=== PATIENT | female | born 1935 | race Caucasian/White ===

== ENCOUNTER → 2018-10-24 | Outpatient (CLI) | payer OTHER ==
[~2018-10-24] MED LIST: ANTIVERT12.5 MG PO; ARTIFICIAL TEA1 EACH OPHTHALMIC; ASPIR 8181 MG PO; ASPIRIN81 M2 PO; AZO CRANBERRY1 EAC1 PO; BYSTOLIC 5 MG5 M1 PO; CATAPRES0.1 MG PO; DIAZEPAM 5 MG5 M1 PO; IMDUR30 MG PO; ISOSORBIDE DINI30 MG PO; LIVALO2 MG PO; MULTI VITAMIN1 EACH PO; OMEGA-3 FISH1000 M1 PO; OMEPRAZOLE20 M2 PO; OMEPRAZOLE40 MG PO; PROBIOTIC1 EAC1 PO; QUINU10 PD; SUPER CAL-MAG1 EACH PO; SYSTANE BALANCE10 ML OPHTHALMIC; TRAMADOL 50 MG50 MG PO; VASCEPA1 GM PO; VITAMIN B PO; VITAMIN B-125000 MC1 PO; VITAMIN D PO; VITAMIN D2000 UNIT PO; ZOFRAN4 MG PO
[2018-10-24 15:38] LABS: HEMATOCRIT 39.7 % (37.0-47.0); HEMOGLOBIN 13.1 gm/dL (12.0-15.0); MCH 28.7 pg (26.0-34.0); MCHC 33.1 g/dL (28.0-37.0); MCV 86.8 fL (80.0-100.0); RBC 4.57 mil/uL (4.20-5.00); RDW 13.7 % (10.5-14.5); WBC 7.8 thou/uL (4.0-11.0)
[2018-10-24 16:00] LABS: CALCIUM 9.6 mg/dL (8.5-10.1); CREATININE 0.7 mg/dL (0.6-1.0); POTASSIUM 4.2 mmol/L (3.5-5.1); TOTAL BILIRUBIN 0.4 mg/dL (<0.1-1.0); TOTAL PROTEIN 7.3 g/dL (6.4-8.2)
== END ==
LOC: LAB 15:08
PROVIDERS: Nurse Practitioner
DX: K44.9 Diaphragmatic hernia without obstruction or gangrene (principal); K40.90 Unilateral inguinal hernia, without obstruction or gangrene, not specified as recurrent; K76.0 Fatty (change of) liver, not elsewhere classified; R91.1 Solitary pulmonary nodule; M47.814 Spondylosis without myelopathy or radiculopathy, thoracic region; M47.816 Spondylosis without myelopathy or radiculopathy, lumbar region; K86.2 Cyst of pancreas; N28.1 Cyst of kidney, acquired; K57.30 Diverticulosis of large intestine without perforation or abscess without bleeding; I70.0 Atherosclerosis of aorta; Z95.818 Presence of other cardiac implants and grafts; Z90.710 Acquired absence of both cervix and uterus; Z90.49 Acquired absence of other specified parts of digestive tract

== ENCOUNTER 2018-10-29 10:24 | Emergency (ER) | payer OTHER ==
[~2018-10-29] VITALS: Ht 149.9 cm; Wt 47.6 kg
[2018-10-29] MEDS ORDERED: ASPERCREME1 EACH TRANSDERM (12:21)
[2018-10-29] MEDS ORDERED: NORCO 5-325 TA1 EAC1 PO (12:21)
[2018-10-29 12:46] VITALS: BP 161/56
== END 2018-10-29 12:37 | disposition home or self-care (01) ==
LOC: ER 10:24
DX: M54.2 Cervicalgia (principal); M25.511 Pain in right shoulder; M25.512 Pain in left shoulder; G89.29 Other chronic pain; M54.9 Dorsalgia, unspecified; I10 Essential (primary) hypertension; E78.5 Hyperlipidemia, unspecified; K21.9 Gastro-esophageal reflux disease without esophagitis; E11.9 Type 2 diabetes mellitus without complications; M85.80 Other specified disorders of bone density and structure, unspecified site; M51.26 Other intervertebral disc displacement, lumbar region; Z90.89 Acquired absence of other organs; Z90.49 Acquired absence of other specified parts of digestive tract; Z98.890 Other specified postprocedural states; Z95.1 Presence of aortocoronary bypass graft; Z86.73 Personal history of transient ischemic attack (TIA), and cerebral infarction without residual deficits; Z88.0 Allergy status to penicillin; Z88.2 Allergy status to sulfonamides; Z88.6 Allergy status to analgesic agent; Z88.8 Allergy status to other drugs, medicaments and biological substances; Z91.048 Other nonmedicinal substance allergy status; Z90.710 Acquired absence of both cervix and uterus

== ENCOUNTER → 2019-09-30 | Outpatient (CLI) | payer OTHER ==
[~2019-09-30] MED LIST changes: +ASPERCREME1 EACH TRANSDERM; +NORCO 5-325 TA1 EAC1 PO
== END ==
LOC: SJCVC 13:51 → SJCVCIMAG 13:51
PROVIDERS: ATTEND Internal Medicine Cardiovascular Disease
DX: I65.23 Occlusion and stenosis of bilateral carotid arteries (principal); I45.10 Unspecified right bundle-branch block; R94.31 Abnormal electrocardiogram [ECG] [EKG]; I25.10 Atherosclerotic heart disease of native coronary artery without angina pectoris; I77.1 Stricture of artery; E78.00 Pure hypercholesterolemia, unspecified; I10 Essential (primary) hypertension; R42 Dizziness and giddiness; Z87.891 Personal history of nicotine dependence; Z79.899 Other long term (current) drug therapy; Z82.49 Family history of ischemic heart disease and other diseases of the circulatory system; Z95.828 Presence of other vascular implants and grafts

== ENCOUNTER → 2019-12-13 | Outpatient (CLI) | payer OTHER ==
[~2019-12-13] MED LIST changes: +BYSTOLIC10 MG PO; +CHILDREN'S ASPI81 M1 PO
== END ==
LOC: SJCVCIMAG 10-14 09:34
PROVIDERS: ATTEND Internal Medicine Cardiovascular Disease
DX: I08.8 Other rheumatic multiple valve diseases (principal); R94.31 Abnormal electrocardiogram [ECG] [EKG]; I70.203 Unspecified atherosclerosis of native arteries of extremities, bilateral legs; I45.10 Unspecified right bundle-branch block; I11.9 Hypertensive heart disease without heart failure; I25.10 Atherosclerotic heart disease of native coronary artery without angina pectoris; E78.00 Pure hypercholesterolemia, unspecified; I77.1 Stricture of artery; I27.20 Pulmonary hypertension, unspecified; Z95.820 Peripheral vascular angioplasty status with implants and grafts; Z79.899 Other long term (current) drug therapy; Z87.891 Personal history of nicotine dependence

== ENCOUNTER 2019-12-17 04:01 | Observation (INO) | payer OTHER ==
[2019-12-17] VITALS (8 sets, daily range): BP systolic 118–197; BP diastolic 48–73
[~2019-12-17] VITALS: Ht 149.9 cm; Wt 47.6 kg
[~2019-12-17 04:01] MED LIST changes: -BYSTOLIC10 MG PO; -CHILDREN'S ASPI81 M1 PO
[2019-12-17 04:38] LABS: ABSOLUTE NEUTROPHILS 3.9 thou/uL (1.4-8.2); BASOPHILS 0.7 % (0.0-2.0); EOSINOPHILS 1.7 % (0.0-3.0); HEMATOCRIT 37.4 % (37.0-47.0); HEMOGLOBIN 12.3 gm/dL (12.0-15.0); LYMPHOCYTES 26.5 % (24.0-44.0); MCH 28.8 pg (26.0-34.0); MCV 87.3 fL (80.0-100.0); MONOCYTES 9.5 % (1.0-8.0); PLATELET COUNT 190 thou/uL (150-400); POLYS 61.6 % (36.0-66.0); RBC 4.28 mil/uL (4.20-5.00); RDW 13.7 % (10.5-14.5); WBC 6.3 thou/uL (4.0-11.0)
[2019-12-17 04:45] LABS: ANION GAP 10 mmol/L (7-16); BUN 18 mg/dL (7-18); CALCIUM 9.3 mg/dL (8.5-10.1); CHLORIDE 100 mmol/L (98-107); CO2 27 mmol/L (21-32); CREATININE 0.8 mg/dL (0.6-1.0); GLUCOSE 178 mg/dL (74-106); SODIUM 137 mmol/L (136-145)
[2019-12-17 04:56] LABS: ALBUMIN 3.8 g/dL (3.4-5.0); LIPASE 214 U/L (73-393); SGOT 19 U/L (15-37); SGPT 20 U/L (30-65); TOTAL BILIRUBIN 0.5 mg/dL (0.2-1.0); TOTAL PROTEIN 7.4 g/dL (6.4-8.2); TROPONIN-I <0.06 ng/mL (<0.06)
[2019-12-17 05:41] LABS: URINE BILIRUBIN NEGATIVE (Negative); URINE BLOOD NEGATIVE (Negative); URINE CLARITY CLEAR; URINE COLOR YELLOW; URINE GLUCOSE-RANDOM* NEGATIVE (Negative); URINE KETONES NEGATIVE (Negative); URINE LEUKOCYTES-REFLEX TRACE (Negative); URINE NITRITE-REFLEX NEGATIVE (Negative); URINE PROTEIN (DIPSTICK) NEGATIVE (Negative); URINE SPECIFIC GRAVITY 1.015 (1.005-1.035); URINE UROBILINOGEN 0.2 E.U./dl (0.2-1.0)
[2019-12-17] MEDS ORDERED: CHILDREN'S ASPI81 M1 PO (06:10)
[2019-12-17] MEDS ORDERED: BYSTOLIC10 MG PO (06:10)
[2019-12-17] MEDS ORDERED: VASCEPA1 GM PO (06:10)
--- NOTE | 2019-12-17 07:39 | EKG ---
[facility] [place] [address] ELECTROCARDIOGRAM REPORT Name: BILL DUVAL Room #: 206-P ADM IN M.R.#: [id number] Admission: 12/17/19 Attend Phys: Claudio Avalos MD Discharge: Date of : 37 Report #: [id number] THIS REPORT FOR: cc: Claudio Avalos MD, Neal A. MD Santiago, Patrick MD [facility] ~ THIS REPORT FOR: //name// [facility] ED Test Date: 2019-12-17 Test Time: 04:05:15 Pat Name: BILL DUVAL Department: Room: 206 Gender: F Lens Blank Gauger: gómez : 1935 Requested By: Keegan Todd Order Number: [id number] MD: Todd Cabral Measurements Intervals [place] Rate: 61 P: 65 [place]: 130 QRS: 40 QRSD: 157 T: 26 QT: 457 QTc: 461 Interpretive Statements Sinus rhythm Right bundle branch block Compared to ECG 08/21/2014 13:56:58 No significant changes Electronically Signed On 12-17-2019 7:39:29 CDT by Todd Cabral [email or web address] <ELECTRONICALLY SIGNED> By: Todd Cabral MD, FAC 12/17/19 0739 0405 0405 Todd Cabral MD, [facility] /EPI
--- NOTE | 2019-12-17 16:25 | NUR ---
Met with patient and dtr arrived who lives 3 hours away. Patient reports she lives alone and children live out of town. PCP Dr Avalos. She repprts independent with adls and self care. She uses no DME. She reports lives in 2 story home but stays on one level. Patient reports she is so dizzy. She reports falling at home. She does not have a walker if needed. Has in past but gave away. When discussing possible home health care patient started crying. 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 SHe reports now she needs assistance at home. She states finacially cannot move to assisted living. Gave information of HH care, Private duty and senior resources. Reviewed coverage from [employer] with hh care and private pay for private duty. Reviewd all with dtr as well. Patient with no preference for HH care. Orders for therapy to eval. Casemgt following.
--- NOTE | 2019-12-17 17:19 | NUR ---
ASSUMED CARE OF PT AT SHIFT CHANGE. ASSESSMENTS CHARTED. MEDS GIVEN PER MAY. PT A&OX4, NO C/O PAIN THORUGHOUT SHIFT. PT WENT FOR CATH PROCEDURE THIS AM, NO INTERVENTIONS. R GROIN SITE CDI, WITHOUT BRUISING OR HEMATOMA. PT VERY DIZZY WITH ANY ATTMEPT TO SIT UP IN BED. X1 ASST TO THE BATHROOM. WILL CONTINUE TO MONITOR AND FOLLOW POC.
[2019-12-18] VITALS (9 sets, daily range): BP systolic 13–1363; BP diastolic 44–82
--- NOTE | 2019-12-18 05:24 | NUR ---
ASSUMED CARE OF PATIENT AT 1900; UP TO BSC OR BEDPAN WITH ASSIST DEPENDING ON LEVEL OF DIZZINESS REPORTED BY PATIENT AND RELUCTANCE TO AMBULATE; PATIENT BECAME ANXIOUS REGARDING THE STARTING OF HOME MEDS, PROVIDER SUBMITTED SUBSTITUTE SUPPLEMENT MED FOR THE NOC ONLY; PATIENT EXPERIENCED HoTN IN EARLY AM WITHOUT SYMPTOMS; PROGRESSING SLOWLY TOWARD D/C GOALS; CONTINUE TO MONITOR AND ASSESS NEEDED.
[2019-12-18 06:36] LABS: CALCIUM 8.6 mg/dL (8.5-10.1); CREATININE 0.9 mg/dL (0.6-1.0); POTASSIUM 4.4 mmol/L (3.5-5.1)
--- NOTE | 2019-12-18 10:46 | NUR ---
FAXED REFERRAL TO [facility] HH SPOKE WITH DONNY IN INTAKE SHE RECEIVED REFERRAL AND CAN ACCEPT. PT DISCHARGING TODAY TO HOME WITH HH FAXED DC ORDERS/SUMMARY TO [facility] AND RECEIVED CONFIRMATION. DONNY FROM INTAKE WILL CALL PT TO ARRANGE VISITS.
--- NOTE | 2019-12-18 13:39 | NUR ---
CONSULT [id number] WAS COMPLETED WITH PATIENT BY THIS CUSTOMER SUPPLY COORDINATOR TODAY. HER DAUGHTER WAS PRESENT AND BOTH APPRECIATED THE VISIT.
--- NOTE | 2019-12-18 14:39 | NUR ---
ASSUMED CARE OF PT AT SHIFT CHANGE. ASSESSMENTS CHARTED. MEDS GIVEN PER MAY. PT A&OX4, NO C/O PAIN. PT WORKED WITH PT, CM AQUIRED WALKER FOR PT TO TAKE HOME AND SET UP HOME HEALTH. PT REPORTED DIZZYNESS BETTER. DISCHARGE ORDERS AND INSTRUCTIONS COMPLETE. TELE AND IV DC'D. PT TAKE VIA WHEELCHAIR TO [facility] ENTRANCE TO DAUGHTER WAITING IN PRIVATE CAR.
--- NOTE | 2019-12-18 16:20 | NUR ---
patient to dc home. Arranged HH with [facility]. issued walker for home. Sp with dtr regarding HH and coverage with insurance and private dty. No further needs.
--- NOTE | 2019-12-19 17:06 | CATHLAB ---
[facility] [place] [address] INVASIVE PROCEDURE REPORT Name: BILL DUVAL Room #: 206-P [facility] Ravi Damon#: [id number] Admission: 12/17/19 Attend Phys: Claudio Avalos MD Discharge: 12/18/19 Date of : 36 Report #: [id number] THIS REPORT FOR: cc: Claudio Avalos MD, Neal A. MD Mancuso, Gerald M. MD [facility] ~ APPROVED REPORT Study performed: 12/17/2019 09:44:02 Patient Details Patient Status: In-Patient Room #: The patient is a 84 year-old female Event Personnel Calderon Guerrero Permanent Waver, Cresencio Teague RN RN, Kirsten Roche Monitor, Robinson Pittman RTSteve Scrub Procedures Performed Art Access - R femoral artery* 34483 Initial Mod Sed Same Phys/QHP Gr5y 436355 61614 Mod Sed Same Phys/QHP Ea 678052 Left Heart Cath Coronaries, Bypass Grafts [id number] LHCCORCABG Aortogram Abdominal Peripheral Angio 008866 Hemostasis with Manual pressure Indication Chest pain Procedure Narrative The patient was brought urgently to the Cardiac Catheterization Laboratory and was prepped and draped in a sterile manner. The Right Groin^ was infiltrated with 1% Lidocaine subcutaneous anesthesia. A PINNACLE 6FR Sheath #[id number] sheath was inserted into the RFA^. Coronary angiography was performed using coronary diagnostic catheters. The right coronary system was accessed and visualized with a JR 4 catheter. The left coronary system was accessed and visualized with a JL 4 catheter. The left ventricle was accessed and visualized with a Pigtail catheter. Left ventriculogram was performed in OLIVIER projection. An aortogram of the abdominal aorta was performed. Hemostasis was obtained with manual pressure following sheath removal without any complications. The patient tolerated the procedure well and there were no complications associated with the procedure. There was no hematoma. [facility] [place] [address] INVASIVE PROCEDURE REPORT Name: MUKUNDBILL TEMITOPE Room #: 206-P [facility] IN .R.#: [id number] Admission: 12/17/19 Attend Phys: Claudio Avalos, Discharge: 12/18/19 Date of : 36 Report #: [id number] Intraoperative Conscious Sedation Sedation start time: 10:33 Case end Time: 11:24 Versed 4 mg Fluoro Time: 5.07 minutes Dose: DAP 2852.00 cGycm2 348 mGy Contrast Type and Amount: Omnipaque 195 ml Hemodynamics The aortic pressure is 166/49 mmHg with a mean of 89 mmHg. The left ventricular pressure is 186/2 mmHg with a mean of mmHg. The left ventricular end diastolic pressure is 29 mmHg. Conclusion 1. Normal left jugular size and systolic function EF 60% #2 abdominal aortogram revealing a small infrarenal aortic aneurysm at the bifurcation of the iliac system. Iliac arteries previously stented appear widely patent #3 left main has distal ostial narrowing of 60 to 70% filling a LAD and circumflex. #4 the LAD is mild to moderately diseased throughout there is retrograde filling of a small atretic RAINEY graft that is essentially nonfunctioning. #5 small nonfunctioning a atretic RAINEY graft providing minimal filling to a patent LAD. #6 circumflex OM high-grade ostial disease and then occludes #7 high-grade ostial dominant RCA lesion and a high-grade mid lesion this vessel is predominantly filled via a vein graft. #8 ectatic moderately diseased vein graft to the PDA is intact with brisk filling of the PDA VINCENT system retrograde. 50% lesion in the proximal vein graft. No occlusive disease #9 a radial or vein graft to an OM system is intact it is smaller in caliber and mildly diseased the OM system fills this via this vessel relatively small in distribution. Recommendations and plan: Continue aggressive risk factor modification. 1 could consider intervention to protected left main filling the LAD which remains patent through the beaver system. The RAINEY has become atretic. I would continue to follow her and look for anterior wall ischemia prior to possible intervention to this [address] [address] INVASIVE PROCEDURE REPORT Name: BILL DUVAL Room #: 206-P DIS IN M.R.#: [id number] Admission: 12/17/19 Attend Phys: Claudio Avalos, Discharge: 12/18/19 Date of : 36 Report #: [id number] protected left main. Will follow up that small infrarenal aortic aneurysm with aortoiliac ultrasound. <ELECTRONICALLY SIGNED> By: Calderon Guerrero MD, [facility] 12/19/191705 05 05 Calderon Guerrero MD, FAC /INF
== END 2019-12-18 13:53 | disposition home or self-care (01) ==
LOC: ER 04:01 → 2N 05:41 → EROBS 05:41 → 2N 05:41
PROVIDERS: Emergency Medicine; Nurse Practitioner Adult Health; ADMIT Family Medicine; ATTEND Family Medicine
DX: I25.118 Atherosclerotic heart disease of native coronary artery with other forms of angina pectoris (principal); I10 Essential (primary) hypertension; E78.5 Hyperlipidemia, unspecified; R42 Dizziness and giddiness; R53.1 Weakness; I73.9 Peripheral vascular disease, unspecified; E78.00 Pure hypercholesterolemia, unspecified; I65.29 Occlusion and stenosis of unspecified carotid artery; T46.6X5A Adverse effect of antihyperlipidemic and antiarteriosclerotic drugs, initial encounter; Z79.82 Long term (current) use of aspirin; Z79.899 Other long term (current) drug therapy
CPT/HCPCS: 10081

== ENCOUNTER 2020-01-27 18:14 | Inpatient (IN) | payer OTHER ==
[~2020-01-27] VITALS: Ht 149.9 cm; Wt 45.4 kg
[~2020-01-27 18:14] MED LIST changes: +BYSTOLIC10 MG PO; +CHILDREN'S ASPI81 M1 PO
[2020-01-27 18:15] VITALS: BP 196/56
[2020-01-27 18:44] LABS: ABSOLUTE NEUTROPHILS 5.3 thou/uL (1.4-8.2); BASOPHILS 0.5 % (0.0-2.0); EOSINOPHILS 0.2 % (0.0-3.0); HEMATOCRIT 37.3 % (37.0-47.0); HEMOGLOBIN 12.5 gm/dL (12.0-15.0); LYMPHOCYTES 13.3 % (24.0-44.0); MCH 29.2 pg (26.0-34.0); MCHC 33.5 g/dL (28.0-37.0); MONOCYTES 5.7 % (1.0-8.0); PLATELET COUNT 200 thou/uL (150-400); POLYS 80.3 % (36.0-66.0); RBC 4.28 mil/uL (4.20-5.00); RDW 13.6 % (10.5-14.5); WBC 6.6 thou/uL (4.0-11.0)
[2020-01-27 19:08] LABS: ALBUMIN 3.8 g/dL (3.4-5.0); CALCIUM 9.1 mg/dL (8.5-10.1); CREATININE 0.8 mg/dL (0.6-1.0); POTASSIUM 4.1 mmol/L (3.5-5.1); TOTAL BILIRUBIN 0.6 mg/dL (0.2-1.0); TOTAL PROTEIN 7.2 g/dL (6.4-8.2)
[2020-01-27 19:52] LABS: URINE BILIRUBIN NEGATIVE (Negative); URINE BLOOD NEGATIVE (Negative); URINE CLARITY CLEAR; URINE COLOR YELLOW; URINE GLUCOSE-RANDOM* NEGATIVE (Negative); URINE KETONES TRACE (Negative); URINE LEUKOCYTES-REFLEX TRACE (Negative); URINE NITRITE-REFLEX NEGATIVE (Negative); URINE PROTEIN (DIPSTICK) NEGATIVE (Negative); URINE SPECIFIC GRAVITY 1.015 (1.005-1.035); URINE UROBILINOGEN 0.2 E.U./dl (0.2-1.0)
[2020-01-27] MEDS ORDERED: VALIUM2 MG PO (22:10)
[2020-01-27] MEDS ORDERED: ONDANSETRON ODT8 MG PO (22:10)
[2020-01-28] VITALS (7 sets, daily range): BP systolic 139–174; BP diastolic 46–67
--- NOTE | 2020-01-28 05:11 | NUR ---
ASSUMED PT CARE AT 0300 FROM THE ED. PT IS ALERT AND ORIENTED X4. PT IS HARD OF HEARING. 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 PT WEARS PRESCRIPTION GLASSES. PT HAS A LEFT AC. PT DENIES PAIN. PT IS RESTING IN HER ROOM. ADMIT WAS DONE BY MY CHARGE AND I DID THE HISTORY AND EDUCATION. WILL CONTINUE TO MONITOR.
--- NOTE | 2020-01-28 07:31 | EKG ---
[facility] [place] [address] ELECTROCARDIOGRAM REPORT Name: BILL DUVAL Room #: 446-P ADM IN M.R.#: [id number] Admission: 01/28/20 Attend Phys: Claudio Avalos MD Discharge: Date of : 36 Report #: [id number] THIS REPORT FOR: cc: Claudio Avalos MD, Neal A. MD Santiago, Patrick MD [facility] ~ THIS REPORT FOR: //name// [facility] ED Test Date: 2020-01-27 Test Time: 19:28:36 Pat Name: BILL DUVAL Department: Room: 44 Gender: F Human Resources Compensation Analyst: no : 1935 Requested By: Garo Burns Order Number: [id number] MD: Todd Cabral Measurements Intervals [place] Rate: 62 P: 58 [place]: 161 QRS: 28 QRSD: 152 T: -39 QT: 454 QTc: 461 Interpretive Statements Sinus rhythm Right bundle branch block Baseline wander in lead(s) V2,V4,V5 Compared to ECG 12/17/2019 04:05:15 No significant changes Electronically Signed On 01-28-2020 7:31:41 MARINE RESOURCE ECONOMIST by Todd Cabral [email or web address] <ELECTRONICALLY SIGNED> By: Todd Cabral MD, FACC 01/28/20 0731 27 27 Todd Cabral MD, FACC /EPI
--- NOTE | 2020-01-28 15:25 | NUR ---
ASSUMED CARES AT 0700. PT AWAKE, ALERT AND ORIENTED*4 BUT FORGETFUL. DENIES PAIN. DENIES NAUSEA AND VOMITING. ON CLEAR LIQUIDS THIS AM, PROGRESSED TO REGULAR DIET AT LUNCH AND TOLERATED WELL, WILL CONTINUE TO MONITOR. ORTHOSTATIC PRESSURES STABLE (SEE VS). PT DENIES DIZZINESS, STATED THAT SHE IS AFRAID TO WALK TO THE BATHROOM WITHOUT ASSISTANCE. UP WITH SBA, AND TOLERATED WELL. Q1H VISUAL CHECKS. CALL LIGHT WITHIN REACH. FALL PRECAUTIONS IN PLACE
--- NOTE | 2020-01-28 15:58 | NUR ---
ASSESSMENT: CM REVIEWED CHART AND SPOKE WITH PATIENT. PT WAS ADMITTED DUE TO VERITGO. PT REPORTS LIVING IN A HOUSE ALONE. PT REPORTS HAVING 3 STEPS WITH HANDRAILS TO ENTER AND NO STEPS TO USE ONCE INSIDE. PT REPORTS THAT SHE HAS CHILDREN THAT LIVE OUT OF TOWN. PT REPORTS SHE IS CURRENTLY IN SERVICES WITH [facility]. PT REPORTS HAVING A WALKER AT HOME FOR AMBULATION. PT ALSO HAS A GRAB BAR AND SHOWER CHAIR. PT REPORTS THAT SHE STILL DRIVES. CM FAXED UPDATED CLINICAL TO [facility] AND NOTIFIED THEM OF ADMISSION. CM WILL CONTINUE TO FOLLOW.
--- NOTE | 2020-01-28 16:53 | NUR ---
FAXED CLINICAL UPDATE TO [facility] HH RECEIVED CONFIRMATION AND WILL F/U WITH INTAKE IN THE AM.
[2020-01-29] VITALS (7 sets, daily range): BP systolic 135–151; BP diastolic 52–62
--- NOTE | 2020-01-29 03:57 | NUR ---
Care assumed of patient at 2300: Patient resting quietly in bed throughout the night. Denies pain or discomfort. Denies nausea, vomitting or vertigo upon completion of orthostatic BPs. Will continue to monitor.
[2020-01-29] MEDS ORDERED: NORVASC5 MG PO (07:59)
[2020-01-29] MEDS ORDERED: MECLIZINE HCL25 MG PO (08:00)
--- NOTE | 2020-01-29 11:13 | NUR ---
on-going assessment: CM REVIEWED CHART AND SPOKE WITH PT. PTS HAS ORDERS TO DISCHARGE HOME TODAY WITH HOME HEALTH ([facility]ERY/[facility] ). CM [facility]ED [facility] AND CONFIRMED THEY RECEIVED THEM. PT REPORTS SHE HAS A RIDE HOME. PT REPORTS SHE HAS NO FUTHER NEEDS FROM . CASE CLOSED.
--- NOTE | 2020-01-29 20:53 | NUR ---
ASSUMED CARE OF PT AT 0700. PT IS A&OX4 AND VITAL SIGNS ARE STABLE. PT DENIES DIZZINESS, NAUSEA OR VOMITING AT THIS TIME. PT TOLERATING AMBULATION WITH STAFF SUPERVISION. ORDERS FOR DISCHARGE THIS SHIFT. IV REMOVED FROM RIGHT AC PRIOR TO DISCHARGE. DENIES PAIN. REVIEWED DISCHARGE MEDICATIONS, INSTRUCTIONS, F/U APPOINTMENTS, AND EDUCATION WITH PT PRIOR TO DISCHARGE. PT DENIES QUESTIONS. PT SIGNED D/C FORMS. RX SCRIPTS PLACED IN PACKED AND PT INSTRUCTED TO TAKE TO PHARMACY. BELONGINGS REMOVED FROM ROOM AT TIME OF DISCHARGE BY PT AND DAUGHTER. DAUGHTER ON UNIT AT TIME OF DISCHARGE. BOTH DENY QUESTIONS AT TIME OF DISCHARGE. PT LEFT UNIT AT APPROXIMATELY 1500.
== END 2020-01-29 14:49 | disposition home health service (06) | DRG 149 ==
LOC: ER 18:14 → EROBS 01-28 02:02 → 4S 01-28 02:02 → EROBS 01-28 02:02 → 4S 01-28 02:58
PROVIDERS: Emergency Medicine; ADMIT Family Medicine; ATTEND Family Medicine
DX: H81.10 Benign paroxysmal vertigo, unspecified ear (principal); E78.00 Pure hypercholesterolemia, unspecified; I10 Essential (primary) hypertension; I73.9 Peripheral vascular disease, unspecified; I25.10 Atherosclerotic heart disease of native coronary artery without angina pectoris; Z96.1 Presence of intraocular lens; Z90.710 Acquired absence of both cervix and uterus; Z98.891 History of uterine scar from previous surgery; Z90.49 Acquired absence of other specified parts of digestive tract; Z98.42 Cataract extraction status, left eye; Z98.41 Cataract extraction status, right eye; Z95.1 Presence of aortocoronary bypass graft; Z86.73 Personal history of transient ischemic attack (TIA), and cerebral infarction without residual deficits; Z79.82 Long term (current) use of aspirin; Z79.899 Other long term (current) drug therapy; Z88.5 Allergy status to narcotic agent; Z88.0 Allergy status to penicillin; Z88.2 Allergy status to sulfonamides; Z88.8 Allergy status to other drugs, medicaments and biological substances; Z87.891 Personal history of nicotine dependence
CPT/HCPCS: 10195

== ENCOUNTER → 2020-02-17 | Outpatient (CLI) | payer OTHER ==
[~2020-02-17] MED LIST changes: +MECLIZINE HCL25 MG PO; +NORVASC5 MG PO; +ONDANSETRON ODT8 MG PO; +VALIUM2 MG PO
== END ==
LOC: SJCVC 14:51
PROVIDERS: ATTEND Internal Medicine Cardiovascular Disease
DX: I45.10 Unspecified right bundle-branch block (principal); R94.31 Abnormal electrocardiogram [ECG] [EKG]; R00.1 Bradycardia, unspecified; I25.118 Atherosclerotic heart disease of native coronary artery with other forms of angina pectoris; I73.9 Peripheral vascular disease, unspecified; E78.00 Pure hypercholesterolemia, unspecified; I10 Essential (primary) hypertension; R06.00 Dyspnea, unspecified; I65.23 Occlusion and stenosis of bilateral carotid arteries; R42 Dizziness and giddiness

== ENCOUNTER 2020-03-05 06:32 | Observation (INO) | payer OTHER ==
[2020-03-05] VITALS (10 sets, daily range): BP systolic 124–158; BP diastolic 57–88
[~2020-03-05] VITALS: Ht 149.9 cm; Wt 49.4 kg
[2020-03-05 07:36] LABS: HEMATOCRIT 37.7 % (37.0-47.0); HEMOGLOBIN 12.4 gm/dL (12.0-15.0); MCH 28.9 pg (26.0-34.0); MCHC 32.8 g/dL (28.0-37.0); MCV 88.1 fL (80.0-100.0); RBC 4.29 mil/uL (4.20-5.00); RDW 13.8 % (10.5-14.5); WBC 5.8 thou/uL (4.0-11.0)
[2020-03-05] MEDS ORDERED: VITAMIN D310 MC3 PO (07:44)
[2020-03-05] MEDS ORDERED: CALCIUM500 MG PO (07:44)
[2020-03-05] MEDS ORDERED: OMEPRAZOLE 20 M20 M1 PO (07:45)
[2020-03-05] MEDS ORDERED: TORSEMIDE10 MG PO (07:45)
[2020-03-05 07:46] LABS: CALCIUM 9.7 mg/dL (8.5-10.1); CREATININE 0.8 mg/dL (0.6-1.0); POTASSIUM 4.1 mmol/L (3.5-5.1)
[2020-03-05] MEDS ORDERED: LIVALO4 MG PO (07:46)
[2020-03-05] MEDS ORDERED: PLAVIX 75 MG TA75 M1 PO (14:28)
--- NOTE | 2020-03-05 17:24 | CATHLAB ---
[facility] [address] [place] [address] INVASIVE PROCEDURE REPORT Name: BILL DUVAL Room #: 201-P ADM Ravi M.RDirk#: [id number] Admission: 03/05/20 Attend Phys: Juan Emmanuel MD Discharge: Date of : 36 Report #: [id number] THIS REPORT FOR: cc: Claudio Avalos MD, Neal A. MD Mancuso, Gerald M. MD [facility] ~ APPROVED REPORT Study performed: 03/05/2020 09:18:53 Patient Details Patient Status: Out-Patient Room #: The patient is a 84 year-old female Event Personnel Calderon Guerrero Brace End Mainspring Former, Jordyn Langston RN RN, Kirsten Roche Monitor, Mehnaz Metcalf RTR, MIDDLEWARE DEVELOPER Scrub Procedures Performed Art Access - L femoral artery* 83262 Initial Mod Sed Same Phys/QHP Gr5y 195316 10827 Mod Sed Same Phys/QHP Ea 909280 Left Heart Cath Coronaries, Bypass Grafts 6073394 LHCCORCABG HARMEET Place w/wo Plasty Single Left Main 023691 Hemostasis w/ Mynx Indication Chest pain Procedure Narrative The patient was brought electively to the Cardiac Catheterization Laboratory and was prepped and draped in a sterile manner. The was infiltrated with 1% Lidocaine subcutaneous anesthesia. A SHEATH BRITE-TIP 6F X 11CM ([id number]) sheath was inserted into the LFA 6frr sheath used^. Coronary angiography was performed using coronary diagnostic catheters. The right coronary system was accessed and visualized with a JR 4 catheter. The left coronary system was accessed and visualized with a JL 4 catheter. The left ventricle was accessed and visualized with a Pigtail catheter. Left ventriculogram was performed in OLIVIER projection. Closure device was deployed with a 6 Fr Mynx. The patient tolerated the procedure well and there were no complications associated with the procedure. There was no hematoma. Intraoperative Conscious Sedation Sedation start time: 08:20 Case end Time: [facility] [address] [place] [address] INVASIVE PROCEDURE REPORT Name: BILL DUVAL Room #: 201-P [facility] IN M.R.#: [id number] Admission: 03/05/20 Attend Phys: Juan Emmanuel, Discharge: Date of : 36 Report #: [id number] 11:00 Versed 2.0 mg Fluoro Time: 11.3 minutes Dose: DAP 7616 cGycm2 984 mGy Contrast Type and Amount: Omnipaque 175 ml Hemodynamics The aortic pressure is 146/49 mmHg with a mean of 81 mmHg. The left ventricular pressure is 173/5 mmHg with a mean of mmHg. The left ventricular end diastolic pressure is 24 mmHg. PCI Technique Lesion Percutaneous coronary intervention was performed on the Common iliac. A 6FR LAUNCHER EBU 3.0 #[id number] Guide Catheter was used to engage the ostium. A Luge Wire .014 x 182CM #[id number] Interventional Guidewire was used to cross the lesion. STENT DEPLOYMENT A drug-eluting stent RESOLUTE IVORY OTW 3.0 X 12 #[id number] was inserted and inflated up to 12atm for 22seconds. Additional Inflation: 18atm for 20seconds. POST STENT DEPLOYMENT BALLOON DILATION A Balloon catheter TREK NC OTW 3.25 X 12 #[id number] was inserted and inflated up to 18atm for 30seconds. PCI Technique Lesion 2 Percutaneous Coronary Intervention was performed on the LM. Conclusion #1. Successful PTCA stent of a mid distal left main stenosis (protected) filling a large LAD which wraps the apex. 80% to 0% residual with a 3.0 x 12 resolute postdilated 3.4 mm MATTHEW grade III flow. #2 LAD with mild irregularities extends to the apex #3 the RAINEY has become a atretic and no significant supply of the LAD system. #4 nondominant circumflex and ramus branch have high-grade lesions which are now jailed by the stent but this is protected as the OM system is bypassed. #5 radial graft to circumflex OM is patent with mild irregularities. Relatively small nondominant circumflex OM system. #6 dominant right coronary high-grade disease throughout its mid vessel. [facility] [address] [place] [address] INVASIVE PROCEDURE REPORT Name: MUKUNDBILL Room #: 201-P [facility] IN Leah.RDirk#: [id number] Admission: 03/05/20 Attend Phys: Juan Emmanuel, Discharge: Date of : 36 Report #: [id number] #7 SVG to the distal right PDA is widely patent with brisk filling of the PDA VINCENT. #8 normal left jugular size and hyperdynamic LV function EF 65%. Recommendations and plan: Continue aggressive risk factor modification. Dual antiplatelet therapy has been initiated for left main stent. Patient transferred to CCU to follow post coronary stent protocol. Pain-free and hemodynamically stable. <ELECTRONICALLY SIGNED> By: Calderon Guerrero MD, FACC 03/05/201723 23 23 Calderon Guerrero MD, FACC /INF
--- NOTE | 2020-03-05 17:46 | NUR ---
13:45-ARRIVED FROM UNSTACKER, REPORT AT BEDSIDE WITH HIWOT OLIVERA. LEFT GROIN IS STABLE, NO HEMATOMA, NO OOZING TO SITE. LEGS ARE BOTH WARM TO TOUCH BILATERALLY AND NO MOTTLING. DENIES ANY SOB, MO CHEST PAIN AT ALL, NSR ON MONITOR AND NO ECTOPY NOTED. DAUGHTER AT BEDSIDE. UPDATE PROVEIDED.
--- NOTE | 2020-03-05 17:48 | NUR ---
15:00-GROIN SITE IS STILL INTACT NOHEMATOMA, NO OOZING. SOFT TO TOUCH. PLACED ON BEDPAN AND SHE VOIDED OUT 1200ML OF CLEAR URINE. ATE ALL HER LUNCH AND DAUGHTER AT BEDSIDE. VERY HARD OF HEARING AND DEAF 100% IN RIGHT EAR FROM POLIO RESIDUAL. HEARING AID IS IN HER LEFT EAR AND ADDRESS HER ON LEFT SIDE. NSR NO ECTOPY.
[2020-03-06 01:00] VITALS: BP 132/44
[2020-03-06 03:30] VITALS: BP 130/43
--- NOTE | 2020-03-06 04:28 | NUR ---
PT S/P HEART CATH. ALERT AND ORIENTED. VITALS STABLE. GROIN SITE C/D/I. NO SIGN OF HEMATOMA. WILL CONTINUE TO MONITOR
[2020-03-06 05:36] LABS: HEMOGLOBIN 11.2 gm/dL (12.0-15.0); MCH 29.1 pg (26.0-34.0); MCV 88.3 fL (80.0-100.0); RBC 3.85 mil/uL (4.20-5.00); WBC 6.5 thou/uL (4.0-11.0)
[2020-03-06 05:55] LABS: ALBUMIN 3.4 g/dL (3.4-5.0); ANION GAP 11 mmol/L (7-16); BUN 15 mg/dL (7-18); CHLORIDE 104 mmol/L (98-107); CO2 25 mmol/L (21-32); CREATININE 0.8 mg/dL (0.6-1.0); GLUCOSE 122 mg/dL (74-106); POTASSIUM 3.9 mmol/L (3.5-5.1); SGOT 16 U/L (15-37); SGPT 18 U/L (30-65); SODIUM 140 mmol/L (136-145); TOTAL BILIRUBIN 0.5 mg/dL (0.2-1.0); TOTAL PROTEIN 6.3 g/dL (6.4-8.2); TROPONIN-I <0.06 ng/mL (<0.06)
--- NOTE | 2020-03-06 07:33 | EKG ---
[facility] [address] [place] [address] ELECTROCARDIOGRAM REPORT Name: MUKUNDBILL Room #: 201-P ADM Ravi M.R.#: [id number] Admission: 03/05/20 Attend Phys: Juan Emmanuel MD Discharge: Date of : 36 Report #: [id number] THIS REPORT FOR: cc: Claudio Avalos MD, Neal A. MD Santiago, Patrick MD [facility] ~ <ELECTRONICALLY SIGNED> By: Todd Cabral MD, FACC 03/06/20 0732 0708 07 Todd Cabral MD, FACC /EPI
[2020-03-06 08:08] VITALS: BP 168/70
[2020-03-06 11:53] VITALS: BP 143/62
== END 2020-03-06 13:00 | disposition home or self-care (01) ==
LOC: CATH 06:32 → 2N 11:43 → CATH 12:28 → 2N 03-06 13:00
PROVIDERS: Nurse Practitioner Adult Health; ADMIT Internal Medicine Cardiovascular Disease; ATTEND Nuclear Medicine Nuclear Cardiology
DX: I25.10 Atherosclerotic heart disease of native coronary artery without angina pectoris (principal); I70.202 Unspecified atherosclerosis of native arteries of extremities, left leg; I10 Essential (primary) hypertension; E78.5 Hyperlipidemia, unspecified; I65.29 Occlusion and stenosis of unspecified carotid artery; I38 Endocarditis, valve unspecified; T46.6X5A Adverse effect of antihyperlipidemic and antiarteriosclerotic drugs, initial encounter; Y92.89 Other specified places as the place of occurrence of the external cause; Z79.82 Long term (current) use of aspirin; Z79.01 Long term (current) use of anticoagulants; Z79.899 Other long term (current) drug therapy; Z95.1 Presence of aortocoronary bypass graft

== ENCOUNTER 2020-12-16 22:43 | Emergency (ER) | payer OTHER ==
[~2020-12-16] VITALS: Ht 149.9 cm; Wt 45.4 kg
--- NOTE | ~2020-12-16 | EMS ---
[facility] [address] [place] [address] EMS Patient Care Report Name: BILL DUVAL Room #: REG JULIO C Damon#: [id number] Admission: 12/16/20 Attend Phys: Discharge: Date of : 36 Report #: [id number] THIS REPORT FOR: //name// Report Transmitted: 12/16/2020 22:23 EMS Care Summary [facility]ly [facility] Incident [id number] @ 12/16/2020 21:51 Incident Location [address] [place] [address] Patient BILL DUVAL Female, 85 Years 1935 Patient Address [address] [place] [address] Patient History Hypertension (HTN),Stroke/CVA,TIA,Cardiac - Stent,Coronary Artery Bypass Graft (CABG),Myocardial Infarction (OK), Patient Allergies Other drug allergy, Patient Medications Aspirin, None Reported, Chief Complaint Headache with hypertension Disposition Transported No Lights/[place] Dispatch Reason Sick Person Transported To [facility] Narrative Dispatched to pt with high blood pressure. Upon arrival pt found sitting upright in chair in care of BFD in no apparent distress. Pt complains of a headache that started 3 hours ago. Pt states she took her blood pressure [facility] [address] [place] [address] EMS Patient Care Report Name: BILL DUVAL Room #: YARELY Damon#: [id number] Admission: 12/16/20 Attend Phys: Discharge: Date of : 36 Report #: [id number] multiple times and it kept going higher even after taking her evening medications. Pt denies shortness of breath. Pt denies dizziness or vomiting. Pt blood pressure trended down throughout transport and pt reported headache went away. ALS assessment. lunchroom monitor, 12-lead, IV, and VS obtained. Pt transported to ED for further evaluation and treatment by MD. Initial Vitals @22:22P: 70,R: 17,CO: 3,SpO2: 98, @PTABP: 254/98, @22:03 @22:12P: 81,R: 16,BP: 237/81,GCS: 15,SpO2: 97,Revised Trauma: 12, @22:27P: 74,R: 14,BP: 198/77,GCS: 15,CO: 2,SpO2: 97,Revised Trauma: 12, Assessments @22:06MENTAL:Person Oriented,Time Oriented,Place Oriented,Event Oriented,SKIN:HEENT:Head/Face: Other,LUNG SOUNDS:ABDOMEN:PELVIS//GI:EXTREMITIES:Left Arm: No Abnormalities,Right Arm: No Abnormalities,Left Leg: No Abnormalities,Right Leg: No Abnormalities,PULSE:NEURO:@22:29MENTAL:Person Oriented,Time Oriented,Place Oriented,Event Oriented,SKIN:HEENT:LUNG SOUNDS:ABDOMEN:PELVIS//GI:EXTREMITIES:Left Arm: No Abnormalities,Right Arm: No Abnormalities,Left Leg: No Abnormalities,Right Leg: No Abnormalities,PULSE:NEURO:No Abnormalities, Impression Hypertension Procedures @22:21Saline Lock 10cc (20 ga) Site: Forearm-LeftResponse: UnchangedSucceeded@22:0412-Lead ECGResponse: UnchangedSucceeded@22:06ALS AssessmentResponse: UnchangedSucceeded Timeline ADMISSIONS SUPERVISOR,BP: 254/98 M,PULSE: ,RR: R,SPO2: Ox,ETCO2: ,BG: ,PAIN: ,GCS: , 21:49,Call Received 21:49,Psap Call 21:51,Dispatched 21:52,En Route 22:02,On Scene 22:03,At Patient 22:03,BP: / M,PULSE: ,RR: R,SPO2: Ox,ETCO2: ,BG: ,PAIN: ,GCS: , 22:04,12-Lead ECG,Response: UnchangedSucceeded, 22:06,ALS Assessment,Response: UnchangedSucceeded, 22:12,BP: 237/81 M,PULSE: 81,RR: 16 R,SPO2: 97 Ox,ETCO2: ,BG: ,PAIN: ,GCS: 15, 22:12,Depart Scene 22:21,Saline Lock 10cc 20 ga Site: Forearm-Left,Response: UnchangedSucceeded, [facility] [address] [place] [address] EMS Patient Care Report Name: BILL DUVAL Room #: YARELY Damon#: [id number] Admission: 12/16/20 Attend Phys: Discharge: Date of : 37 Report #: [id number] 22:22,BP: / M,PULSE: 70,RR: 17 R,SPO2: 98 Ox,ETCO2: ,BG: ,PAIN: ,GCS: , 22:27,BP: 198/77 M,PULSE: 74,RR: 14 R,SPO2: 97 Ox,ETCO2: ,BG: ,PAIN: ,GCS: 15, 22:34,At Destination 23:01,Call Closed Disclaimer v1.1 Copyright 2020 [employer], [employer] This EMS Care Summary contains data elements from the applicable legal record (which may be displayed differently). It is designed to provide pertinent information for the following purposes: continuity of care, clinical quality, and state data reporting. The complete legal record is available to ED staff and administrators of the receiving hospital in [employer]'s Patient Tracker. All data is provided "as is."
[~2020-12-16 22:43] MED LIST changes: +CALCIUM500 MG PO; +LIVALO4 MG PO; +OMEPRAZOLE 20 M20 M1 PO; +PLAVIX 75 MG TA75 M1 PO; +TORSEMIDE10 MG PO; +VITAMIN D310 MC3 PO
[2020-12-16 23:31] LABS: ABSOLUTE NEUTROPHILS 3.2 thou/uL (1.4-8.2); BASOPHILS 0.6 % (0.0-2.0); EOSINOPHILS 1.8 % (0.0-3.0); HEMATOCRIT 37.6 % (37.0-47.0); HEMOGLOBIN 12.1 gm/dL (12.0-15.0); LYMPHOCYTES 21.2 % (24.0-44.0); MCH 28.2 pg (26.0-34.0); MCHC 32.3 g/dL (28.0-37.0); MCV 87.2 fL (80.0-100.0); MONOCYTES 12.3 % (1.0-8.0); PLATELET COUNT 189 thou/uL (150-400); POLYS 64.1 % (36.0-66.0); RBC 4.31 mil/uL (4.20-5.00); RDW 13.2 % (10.5-14.5)
[2020-12-17 00:11] LABS: POTASSIUM 4.5 mmol/L (3.5-5.1)
[2020-12-17 00:22] LABS: ALBUMIN 3.6 g/dL (3.4-5.0); TOTAL BILIRUBIN 0.4 mg/dL (0.2-1.0); TOTAL PROTEIN 7.2 g/dL (6.4-8.2)
[2020-12-17 00:44] LABS: URINE BILIRUBIN NEGATIVE (Negative); URINE BLOOD NEGATIVE (Negative); URINE CLARITY CLEAR; URINE COLOR YELLOW; URINE GLUCOSE-RANDOM* NEGATIVE (Negative); URINE KETONES NEGATIVE (Negative); URINE LEUKOCYTES-REFLEX NEGATIVE (Negative); URINE NITRITE-REFLEX NEGATIVE (Negative); URINE PROTEIN (DIPSTICK) NEGATIVE (Negative); URINE SPECIFIC GRAVITY <= 1.005 (1.005-1.035); URINE UROBILINOGEN 0.2 E.U./dl (0.2-1.0)
[2020-12-17 01:55] VITALS: BP 169/54
--- NOTE | 2020-12-17 08:07 | EKG ---
[facility] [place] [address] ELECTROCARDIOGRAM REPORT Name: BILL DUVAL [id number] Admission: 12/16/20 Attend Phys: Discharge: 12/17/20 Date of : 36 Report #: [id number] [facility] ED Test Date: 2020-12-16 Test Time: 22:55:48 Pat Name: BILL DUVAL Department: Room: Gender: F Carrier Washer: nica : 1935 Requested By: Aurelio Gale Order Number: [id number] MD: Roldan Soriano Measurements Intervals [place] Rate: 68 P: 54 [place]: 157 QRS: 32 QRSD: 146 T: 14 QT: 433 QTc: 461 Interpretive Statements Sinus rhythm Atrial premature complex Right bundle branch block Baseline wander in lead(s) I,II,aVR,aVL,V2 Compared to ECG 03/06/2020 07:08:31 Atrial premature complex(es) now present Electronically Signed On 12-17-2020 8:07:11 CDT by Roldan Soriano [email or web address] <ELECTRONICALLY SIGNED> By: Roldan Soriano MD, [facility] 12/17/20806 2255 2255 Roldan Soriano MD, [facility] /EPI
== END 2020-12-17 05:00 | disposition home or self-care (01) ==
LOC: ER 22:43
PROVIDERS: Emergency Medicine
DX: I10 Essential (primary) hypertension (principal); R51.9 Headache, unspecified; E78.00 Pure hypercholesterolemia, unspecified; K21.9 Gastro-esophageal reflux disease without esophagitis; E11.9 Type 2 diabetes mellitus without complications; I73.9 Peripheral vascular disease, unspecified; I25.10 Atherosclerotic heart disease of native coronary artery without angina pectoris; F41.9 Anxiety disorder, unspecified; Z95.1 Presence of aortocoronary bypass graft; Z90.710 Acquired absence of both cervix and uterus; Z98.890 Other specified postprocedural states; Z90.89 Acquired absence of other organs; Z90.49 Acquired absence of other specified parts of digestive tract; Z79.899 Other long term (current) drug therapy; Z79.82 Long term (current) use of aspirin; Z79.891 Long term (current) use of opiate analgesic; Z88.6 Allergy status to analgesic agent; Z88.5 Allergy status to narcotic agent; Z88.0 Allergy status to penicillin; Z88.2 Allergy status to sulfonamides; Z88.8 Allergy status to other drugs, medicaments and biological substances